=== PATIENT | male | born 1945 | race Caucasian/White ===

== ENCOUNTER → 2017-01-20 | Day surgery (SDC) | payer OTHER, BC ==
[~2017-01-20] VITALS: Ht 180.3 cm; Wt 88.0 kg
[2017-01-20] VITALS (8 sets, daily range): BP systolic 83–145; BP diastolic 33–56; PULSE 50–55; TEMP 36.5; O2SAT 98–100; Ht 180.3 cm; Wt 88.0 kg
[~2017-01-20] MED LIST: AMOX500C3 PO; ASPEC81 PO; ATV/1 PO; CHOL100010 PO; CRS20 PO; CYAN1TAB17 PO; FURO-85 PO; GLC/500 PO; GLC500 PO; GLIP-199 PO; LIDOCAINE HCL 2% 2 ML VIAL (20MG/ML) ONE; LSN20 PO; MAGN400T6 PO; METO50TA16 PO; METO50TA17 PO; MONT1TAB3 PO; MULT-506 PO; NTRGSL/4 UT; OMEG10007 PO; PRLSR20 PO; PROPOFOL IV EMULSION 10 MG/ML 20 ML VIAL IV ONE; VITAMIN B12 PO
--- NOTE | 2017-01-20 08:05 | Discharge Instructions ---
Discharge Instructions Procedure Procedure Date: Jan 20, 2017. Reason for Visit: W/Anes Chf,Fluid Retention *Dr Wayne To Do*. Discharge Discharge Date: Jan 20, 2017. 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 * Resume driving when surgeon permits. * Do not make important decisions or sign legal documents today. * Call surgeon for: 1. Temperature elevations greater than 101 degrees F. 2. Uncontrollable pain. 3. Excessive bleeding. 4. Persistent nausea and vomiting. 5. Medication intolerance (nausea, vomiting or rash). * For nausea and vomiting use only clear liquids such as: tea, soda, bouillon until nausea subsides, then gradually increase diet as tolerated. * If you have any concerns or questions, call your surgeon's office. If physician is unavailable and it is an emergency, call 911 or go to the nearest emergency room. Instructions Activity Recommendations: limitations as noted below Return to School/Work: with the following limitations Recommended Home Diet: resume previous diet Allergies: Coded Allergies: No Known Allergies (Verified , 01/20/17) Follow Up Additional Instructions: ACTIVITY RECOMMENDATIONS: Resume activities as tolerated with no limitations unless specified. __ No lifting over __ pounds for 24 hours. __ Do not engage in vigorous exercise, sexual activity, or sports for 24 hours. __ Do not drive or operate any motorized equipment for 24 hours. __ You may return to work/school tomorrow. __ Nothing to eat or drink until gag reflex returns. __ No HOT or WARM liquids for __ hours. __ Avoid "scratchy" foods such as potato chips or pretzels for 24 hours following procedure. SPECIAL CARE: If you experience coughing up or vomiting of blood, contact Follow-up with: Dr Wayne as scheduled Yung Vidal Recommendations: Call your doctor if: * Temperature above 101 degrees * Pain not relieved by pain medicine ordered * There is increased drainage or redness from any incision * You have any unanswered questions or concerns. Your Doctors Instructions noted above were prepared by provider Zacarias Wayne. Patient Signature Section: Patient Instructions Signature Page Bird Morales Patient (or Guardian) Signature/Date: I have read and understand the instructions given to me by my caregivers. Caregiver/RN/Doctor Signature/Date: The above-named patient and/or guardian has received patient instructions on this date. + Original Patient Signature Page (only) stays with chart. Please make copy for patient.
--- NOTE | 2017-01-20 08:41 | Anesthesiology Progress Note ---
Anesthesia Post Op Note Date & Time Jan 20, 2017 at 08:41 Vital Signs Pain Intensity: 0 Vital Signs Past 12 Hours Date Time Temp Pulse Resp B/P (MAP) Pulse Ox O2 Delivery O2 Flow Rate FiO2 01/20/17 08:35 55 16 93/52 (66) 98 Room Air 01/20/17 08:20 54 16 104/56 (72) 98 Room Air 01/20/17 08:05 53 16 93/54 (67) 96 Room Air 01/20/17 07:55 50 16 87/51 (63) 96 Room Air 01/20/17 07:49 52 16 95/33 100 Nasal Cannula 5 01/20/17 07:44 51 16 91/43 100 Nasal Cannula 5 01/20/17 07:39 50 16 83/41 100 Nasal Cannula 5 01/20/17 07:34 53 16 102/44 100 Nasal Cannula 5 01/20/17 07:29 54 16 98/44 100 Nasal Cannula 5 01/20/17 07:24 54 16 116/51 100 Nasal Cannula 5 01/20/17 07:03 36.5 55 16 145/56 98 Room Air Notes Mental Status: alert / awake / arousable, participated in evaluation Pt Amnestic to Procedure: Yes Nausea / Vomiting: adequately controlled Pain: adequately controlled Airway Patency, RR, SpO2: stable & adequate BP & HR: stable & adequate Hydration State: stable & adequate Anesthetic Complications: no major complications apparent
--- NOTE | 2017-01-21 13:31 | TEE ---
*NOTICE TO RECEIVING CONSTITUTION PARTY AGENCY This information is strictly Confidential and protected under [place] law. [place] law prohibits you from making any further disclosure of this information unless further disclosure is expressly permitted by the written consent of the person to whom it pertains or is authorized by law. A general authorization for the release of medical or other information is not sufficient for this purpose. Hospital accepts no responsibility if the information is made available to any other person, INCLUDING THE PATIENT. Interpretation Summary * Name: CHRIS MONCADA Study Date: 01/20/2017 07:25 AM BP: 116/51 mmHg * Patient Location: [facility] area HR: 53 * : 1945 (M/d/yyyy) Gender: Male Height: 71 in * Age: 71 yrs Ethnicity: [place] Weight: 194 lb * Ordering Physician: Zacarias Wayne MD, [facility] * Performed By: Kenya Carrizales [facility] * * Reason For Study: CHF, AVR w/AI * BSA: 2.1 m2 * -- Conclusions -- * There is a bioprosthetic aortic valve. * The bioprosthetic leaflets are visualized and are freely mobile. Valve structure is stable in position . Overall prosthetic size is small and systolic velocities are elevated at 4.2 m/sec but are consistent with prior studies. * Doppler suggests a mack-prosthetic leak of the prosthetic aortic valve. * There is an eccentric jet of aortic insufficiency directed against the septum. * Severe periprosthetic aortic regurgitation is present * Left ventricular systolic function is normal. * Ejection Fraction = 60-65%. Procedure Details * BRIDGET Probe #1 utilized for procedure. * The study was performed in Cardiac Catheterization Lab. * Time out was conducted by the physician, nurse, and cath lab tech with positive identification of patient and procedure. * Informed consent for Transesophageal Echocardiogram was obtained prior to the procedure. * An intravenous line was placed. A topical anesthetic agent was used for oropharangeal anesthesia. A bite block was inserted. * Sedation performed by the anesthesia department. * Probe insertion time was 0729 \T\ removal time was 0744. * The patient's vital signs, including blood pressure, heart rate, pulse oximetry and cardiac rhythm were monitored throughout the procedure . * A multifrequency, multiplane transesopheageal echocardiographic endoscope was inserted and manipulated in the standard fashion to achieve multiplane views. * The transesophageal probe was passed without difficulty. * The usual views were obtained; basal, mid-esophageal, transgastric and aortic views. * The patient tolerated the procedure well without evidence of orophangeal or esophageal trauma. * A 2D transesophageal echocardiogram was performed. * A 2D transesophageal echocardiogram with color flow Doppler was performed. * A 2D transesophageal echocardiogram with Doppler and color flow Doppler was performed. Left Ventricle * The left ventricle is normal in size. * There is moderate concentric left ventricular hypertrophy. * Ejection Fraction = 60-65%. * Left ventricular systolic function is normal. * The left ventricular wall motion is normal. Right Ventricle * The right ventricular systolic function is normal. Atria * The left atrium is moderately dilated. * No thrombus is detected in the left atrial appendage. * Right atrial size is normal. * The interatrial septum is intact with no evidence for an atrial septal defect. Mitral Valve * The mitral valve leaflets are mildly thickened. * There is no mitral valve stenosis. * There is mild mitral regurgitation. Tricuspid Valve * The tricuspid valve anatomy is normal. Aortic Valve * There is an eccentric jet of aortic insufficiency directed against the septum. * Severe aortic regurgitation. * There is a bioprosthetic aortic valve. * Doppler suggests a mack-prosthetic leak of the prosthetic aortic valve. * The bioprosthetic leaflets are visualized and are freely mobile. Valve structure is stable in position . Overall prosthetic size is small and systolic velocities are elevated at 4.2 m/sec but are consistent with prior studies. Pulmonic Valve * The pulmonic valve is normal in structure and function. Great Vessels * The aortic root is normal size. * Mild atherosclerotic plaque(s) in the aortic arch. Pericardium * There is no pericardial effusion.
== END | disposition home or self-care (01) ==
LOC: C.CATH 06:27
PROVIDERS: ATTEND Internal Medicine Cardiovascular Disease
DX: I25.10 Atherosclerotic heart disease of native coronary artery without angina pectoris (principal); E11.9 Type 2 diabetes mellitus without complications; E78.5 Hyperlipidemia, unspecified; Z95.2 Presence of prosthetic heart valve; Z79.899 Other long term (current) drug therapy